=== PATIENT | male | born 1950 | race Caucasian/White ===

== ENCOUNTER 2016-11-21 13:49 | Emergency (ER) | payer OTHER ==
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
[2016-11-21 17:30] VITALS: BP 160/85; PULSE 61; RESP 18; TEMP 98.1; O2SAT 97
== END 2016-11-21 17:29 | disposition home or self-care (01) ==
DX: S80.211A Abrasion, right knee, initial encounter (principal); S40.811A Abrasion of right upper arm, initial encounter; S80.01XA Contusion of right knee, initial encounter; V18.0XXA Pedal cycle driver injured in noncollision transport accident in nontraffic accident, initial encounter; Y92.410 Unspecified street and highway as the place of occurrence of the external cause; Y93.55 Activity, bike riding

== ENCOUNTER → 2018-07-22 | Outpatient (CLI) | payer OTHER | LOC: BMCIMAGING 11:53 | PROVIDERS: ATTEND Family Medicine | DX: R05 Cough (principal); R91.8 Other nonspecific abnormal finding of lung field ==

== ENCOUNTER → 2018-09-19 | Outpatient (CLI) | payer OTHER | LOC: BMCIMAGING 11:43 | PROVIDERS: ATTEND Internal Medicine | DX: J18.9 Pneumonia, unspecified organism (principal) ==